=== PATIENT | male | born 1965 | race Caucasian/White ===

== ENCOUNTER 2020-08-26 20:22 | Emergency (ER) | payer OTHER ==
[~2020-08-26] VITALS: Ht 177.8 cm; Wt 74.8 kg
[~2020-08-26 20:22] MED LIST: PHENERGAN-CODE120 ML PO; ZPAK PO
[2020-08-26] MEDS ORDERED: NORCO5 PO (21:40)
[2020-08-26 21:54] VITALS: BP 121/90
== END 2020-08-26 21:54 | disposition home or self-care (01) ==
LOC: ER 20:22
DX: S01.511A Laceration without foreign body of lip, initial encounter (principal); S01.412A Laceration without foreign body of left cheek and temporomandibular area, initial encounter; Y04.0XXA Assault by unarmed brawl or fight, initial encounter; Y93.89 Activity, other specified; Y92.89 Other specified places as the place of occurrence of the external cause; Y99.8 Other external cause status